=== PATIENT | female | born 1930 | race Two or more races ===

== ENCOUNTER 2016-12-30 12:03 | Emergency (ER) | payer MEDICARE, OTHER ==
[2016-12-30 13:02] LABS: ABSOLUTE NEUTROPHIL COUNT 2.5 K/mm3 (1.8-7.7); BASO % 0.6 % (0.2-1.0); EOS # 0.1 (0.0-0.5); EOS % 2.9 % (0.9-2.9); HEMATOCRIT 40.9 % (37.0-47.0); HEMOGLOBIN 12.7 gm/l (12.0-16.0); IMM NEUT% 0.2 % (0-1); LYMPH # 1.6 (1.0-4.8); LYMPH % 33.7 % (15-45); MEAN CORPUSCULAR HEMOGLOBIN 31.4 pg (27.0-31.0); MEAN CORPUSCULAR HGB CONC 31.1 g/dl (33.0-37.0); MEAN PLATELET VOLUME 11.4 fl (7.4-10.4); MONO # 0.5 (0.0-0.8); MONO % 10.1 % (4-12); NEUT % 52.5 % (43-75); PLATELET COUNT 144 K/mm3 (130-400)
[2016-12-30 13:19] LABS: ALB/GLOB RATIO 0.9 (>1.0); ALBUMIN 3.6 gm/dL (3.5-5.7); CALCIUM 9.3 mg/dL (8.6-10.3)
[2016-12-30 13:28] LABS: SPECIFIC GRAVITY 1.015 (1.001-1.030); URINE APPEARANCE CLEAR; URINE BILIRUBIN NEGATIVE (NEGATIVE); URINE BLOOD NEGATIVE (NEGATIVE); URINE COLOR YELLOW; URINE GLUCOSE (UA) NEGATIVE (NEGATIVE); URINE LEUKOCYTE ESTERASE NEGATIVE (NEGATIVE); URINE NITRITE NEGATIVE (NEGATIVE); URINE PROTEIN TRACE (NEGATIVE); URINE UROBILINOGEN NORMAL (0-1 mg/dl)
[2016-12-30 13:44] LABS: PLATELET ESTIMATE NORMAL (NORMAL)
--- NOTE | 2016-12-30 13:45 | RAD ---
12/30/2016 1:40 PM CHEST-AP BEDSIDE History: Question of CHF. Comparison: 03/31/2016 Findings: Single AP view of the chest is obtained. The lungs are clear with out effusion or pneumothorax. The cardiomediastinal silhouette is unremarkable.. 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 Degenerative changes of the AC joint and shoulder bilaterally are noted.. Study is limited by patient's body habitus. EKG leads overlie the chest. IMPRESSION: No acute intrathoracic process. Other findings as above.
== END 2016-12-30 16:01 | disposition home or self-care (01) ==
LOC: ED 12:03
DX: I83.208 Varicose veins of unspecified lower extremity with both ulcer of other part of lower extremity and inflammation (principal); L97.819 Non-pressure chronic ulcer of other part of right lower leg with unspecified severity; L97.829 Non-pressure chronic ulcer of other part of left lower leg with unspecified severity; S90.421A Blister (nonthermal), right great toe, initial encounter; I50.9 Heart failure, unspecified; E11.9 Type 2 diabetes mellitus without complications; N18.9 Chronic kidney disease, unspecified; E66.9 Obesity, unspecified; Z68.43 Body mass index [BMI] 50.0-59.9, adult; Z79.4 Long term (current) use of insulin; Z79.84 Long term (current) use of oral hypoglycemic drugs; X58.XXXA Exposure to other specified factors, initial encounter; Y92.9 Unspecified place or not applicable